=== PATIENT | female | born 1995 | race Caucasian/White ===

== ENCOUNTER 2018-05-05 00:01 | Emergency (ER) | payer OTHER ==
--- NOTE | 2018-05-05 00:33 | EDPHY ---
H & P Time Seen by Provider: 05/05/18 00:33 HPI/ROS: CHIEF COMPLAINT: Right foot pain HISTORY OF PRESENT ILLNESS: Patient is a 23-year-old female here with right lateral foot pain after she jumped and fell on her right foot this evening. She reports she was dancing and jumped up in the air and landed awkwardly and has been unable to bear weight on the right foot since. She denies any back pain, knee pain, numbness. She does report difficulty with range of motion of the ankle. She has tried no medication to alleviate her pain. ROS As detailed in HPI Smoking Status: Never smoked Physical Exam: General: Alert and oriented. Nontoxic appearing. No acute distress HEENT: Pupils PERRLA. No oral lesions. Cardiopulmonary: Regular rate and rhythm. No lower extremity edema Skin: [place] warm and dry. No lesions. Muscle skeletal: Moving all 4 extremities. Equal strength in upper extremities and lower extremities. Unable to ambulate on right foot. Swelling to the right lateral midfoot. Neurovascular intact distal to the midfoot. Constitutional: Initial Vital Signs Temperature (C) 36.8 C 05/05/18 00:10 Heart Rate 74 05/05/18 00:10 Respiratory Rate 20 05/05/18 00:10 Blood Pressure 123/82 H 05/05/18 00:10 O2 Sat (%) 97 05/05/18 00:10 O2 Delivery Mode Room Air Allergies/Adverse Reactions: No Known Allergies Allergy (Unverified 05/05/18 00:09) Home Medications: Medication Instructions Recorded NK [No Known Home Meds] 05/05/18 Medical Decision Making ED Course/Re-evaluation: 23-year-old female here with right lateral foot pain found to have a 5th metatarsal fracture. She was placed in posterior splint and given crutches and orthopedic follow-up. Addition she was given a small amount of pain medication to help with breakthrough pain over the next couple days. No evidence of ankle fracture, neurovascular injury, compartment syndrome. - Data Points Medications Given: Discontinued Medications Hydrocodone Bitart/Acetaminophen ([place] 5/325mg Prepack#6) 1 btl TAKEHOME EDNOW ONE Stop: 05/05/18 01:08 Last Admin: 05/05/18 01:14 Dose: 1 btl Departure - Departure Disposition: Home, Routine, Self-Care Clinical Impression: Fracture of fifth metatarsal bone of right foot Condition: Good Instructions: Foot Fracture in Adults (ED) Additional Instructions: Call Orthopedics Sunday for a follow-up appointment early next week. Use crutches for ambulation. You're nonweightbearing on the foot. Referrals: Tequila Maldonado MD [Primary Care Provider] - As per Instructions Ryan Cisneros MD [Medical Doctor] - As per Instructions
[2018-05-05] MEDS ORDERED: HYDROCOD/APAP 5/325 PREPACK#6 BTL TAKEHOME ONE (01:07)
[2018-05-05 01:20] VITALS: BP 117/78
== END 2018-05-05 01:20 | disposition home or self-care (01) ==
PROC: 2W3QX1Z Immobilization of Right Lower Leg using Splint (ICD-10-PCS; principal; 2018-05-05)
DX: S92.351A Displaced fracture of fifth metatarsal bone, right foot, initial encounter for closed fracture (principal); Y30.XXXA Falling, jumping or pushed from a high place, undetermined intent, initial encounter; Y93.41 Activity, dancing; Y92.9 Unspecified place or not applicable